=== PATIENT | female | born 1950 | race Caucasian/White ===

== ENCOUNTER → 2021-12-16 08:50 | Outpatient (BNVA) | payer MEDICARE, OTHER, SELFPAY | PROVIDERS: PCP Internal Medicine; Visit Provider Nurse Practitioner Family | DX: R20.2 Paresthesia of skin (principal); R29.2 Abnormal reflex; M54.12 Radiculopathy, cervical region | CPT/HCPCS: 99202 ==

== ENCOUNTER → 2022-03-24 10:45 | Outpatient (BNVA) | payer MEDICARE, OTHER, SELFPAY | PROVIDERS: PCP Internal Medicine; Visit Provider Nurse Practitioner Family | DX: R20.2 Paresthesia of skin (principal); M54.12 Radiculopathy, cervical region; R29.2 Abnormal reflex; Z98.890 Other specified postprocedural states | CPT/HCPCS: 99212 ==

== ENCOUNTER → 2022-09-29 09:21 | Outpatient (BNVA) | payer MEDICARE, OTHER, SELFPAY | PROVIDERS: PCP Internal Medicine; Visit Provider Nurse Practitioner Family | DX: M54.6 Pain in thoracic spine (principal); M54.12 Radiculopathy, cervical region; R20.2 Paresthesia of skin; R29.2 Abnormal reflex | CPT/HCPCS: 99212 ==

== ENCOUNTER → 2022-11-03 10:14 | Outpatient (BNVA) | payer MEDICARE, OTHER, SELFPAY | PROVIDERS: PCP Internal Medicine; Visit Provider Surgery Vascular Surgery | DX: I73.00 Raynaud's syndrome without gangrene (principal) | CPT/HCPCS: 99202 ==

== ENCOUNTER 2022-11-05 09:00 | Outpatient (RCR) | payer MEDICARE, OTHER, SELFPAY | END 2023-07-13 12:17 | disposition home or self-care (01) | LOC: HO.PTWFD 09:00 | PROVIDERS: PCP Internal Medicine; Visit Provider Nurse Practitioner Family | DX: M54.6 Pain in thoracic spine (principal) | CPT/HCPCS: 97110; 97150; 97162; 97530; 97535 ==